=== PATIENT | male | born 1985 | race Caucasian/White ===

== ENCOUNTER 2016-05-26 14:49 | Emergency (ER) | payer SELFPAY ==
[~2016-05-26] VITALS: Ht 165.1 cm; Wt 86.3 kg
[2016-05-26] MEDS ORDERED: HYDROCODONE/ACETAMINOPHEN 5-325 MG TABLET PO ONE (16:15)
[2016-05-26 18:11] VITALS: BP 144/82
== END 2016-05-26 18:16 | disposition home or self-care (01) ==
LOC: EMS 14:50
DX: S52.042A Displaced fracture of coronoid process of left ulna, initial encounter for closed fracture (principal); W19.XXXA Unspecified fall, initial encounter; Y93.89 Activity, other specified; Y92.89 Other specified places as the place of occurrence of the external cause; Y99.8 Other external cause status
CPT/HCPCS: 99284